=== PATIENT | male | born 1980 | race Hispanic/Latino ===

== ENCOUNTER 2017-09-04 20:27 | Emergency (ER) | payer OTHER ==
[2017-09-04 20:39] VITALS: RESP 18; TEMP 98.1
[2017-09-04 21:23] LABS: BASO % 0.6 % (0.0-2.0); EOS # 0.4 K/uL (0.0-0.7); EOS % 5.4 % (0.0-4.0); HEMOGLOBIN 13.7 g/dL (12.0-18.0); LYMPH % 25.3 % (20.0-40.0); MEAN CELL VOLUME 88.5 fl (80.0-94.0); MEAN CORPUSCULAR HEMOGLOBIN 29.9 pg (27.0-31.0); MEAN CORPUSCULAR HGB CONC 33.8 g/dL (33.0-37.0); MEAN PLATELET VOLUME 7.9 fl (7.2-11.7); MONO # 0.8 K/uL (0.0-0.8); NEUT # 4.6 K/uL (1.8-7.0); NEUT % 58.7 % (50.0-75.0); NRBC % 0.1 % (0.0-0.0); RBC 4.56 Mil/uL (4.40-5.90); RED CELL DISTRIBUTION WIDTH 12.8 % (11.5-14.5); WHITE BLOOD COUNT 7.9 K/uL (4.8-10.8)
--- NOTE | 2017-09-04 21:25 | ED PDOC ---
HPI: Chest Pain Time Seen by Provider: 09/04/17 20:44 Chief Complaint (Nursing): Chest Pain Chief Complaint (Provider): Chest Pain History Per: Patient History/Exam Limitations: no limitations Onset/Duration Of Symptoms: Hrs (earlier today) Current Symptoms Are (Timing): Better Additional Complaint(s): 36 year old male presents to the ED via EMS with complaints of chest pain. He states that around 11:00 this morning, he had a sharp, stabbing left sided chest pain that spontaneously resolved after about a minute. Patient reports that one hour prior to arrival, he had another episode of similar chest pain, but this one was more intense and lasted a little longer before spontaneously resolving. He admits over the past couple days he has been increasingly stressed due to buying / selling a house while still working. Additionally, he notes he has had a headache that radiates from his temples down to his neck for the past day. Otherwise, denies shortness of breath, nausea, vomiting, dizziness , cough, and upper respiratory infection. PMD: none provided Past Medical History Reviewed: Historical Data, Nursing Documentation, Vital Signs Vital Signs: Last Vital Signs Temp 98.1 F 09/04/17 20:35 Pulse 80 09/04/17 20:35 Resp 18 09/04/17 20:35 BP 111/70 09/04/17 20:35 Pulse Ox 96 09/04/17 21:32 - Medical History PMH: Crohn's Disease - Surgical History Other surgeries: knee surg; adenoidectomy - Family History Family History: States: CAD - Social History Current smoker - smoking cessation education provided: No Alcohol: None Drugs: Denies - Allergies Allergies/Adverse Reactions: Allergies Allergy/AdvReac Type Severity Reaction Status Date / Time No Known Allergies Allergy Verified 09/04/17 20:35 Review of Systems ROS Statement: Except As Marked, All Systems Reviewed And Found Negative Cardiovascular: Positive for: Chest Pain (sharp, stabbing feeling x2 episodes) Respiratory: Negative for: Cough (or upper respiratory infection), Shortness of Breath Gastrointestinal: Negative for: Nausea, Vomiting Neurological: Positive for: Headache (radiating from temples to neck). Negative for: Dizziness Physical Exam - Reviewed Nursing Documentation Reviewed: Yes Vital Signs Reviewed: Yes - Physical Exam Appears: Positive for: Well, Non-toxic, No Acute Distress Head Exam: Positive for: ATRAUMATIC, NORMOCEPHALIC Skin: Positive for: Warm, Dry Eye Exam: Positive for: EOMI, PERRL ENT: Negative for: Pharyngeal Erythema, Tonsillar Exudate Neck: Positive for: Painless ROM, Supple Cardiovascular/Chest: Positive for: Regular Rate, Rhythm, Chest Non Tender. Negative for: Edema, Murmur Respiratory: Positive for: Normal Breath Sounds (cleared auscultation bilaterally). Negative for: Accessory Muscle Use, Crackles, Rales, Rhonchi, Wheezing, Respiratory Distress Gastrointestinal/Abdominal: Positive for: Soft. Negative for: Tenderness Back: Positive for: Normal Inspection. Negative for: Decreased ROM Extremity: Positive for: Normal ROM. Negative for: Deformity Lymphatic: Negative for: Adenopathy Neurologic/Psych: Positive for: Alert. Negative for: Motor/Sensory Deficits - Laboratory Results Result Diagrams: 09/04/17 21:14 09/04/17 21:14 - ECG O2 Sat by Pulse Oximetry: 96 (RA) Pulse Ox Interpretation: Normal Medical Decision Making Medical Decision Making: Initial Impression: chest pain Ddx include but are not limited to: stress, costochondritis, tietze syndrome, reflux, muscle spasm Time: 20:58 Initial Plan: --EKG --CMP --Magnesium --Phosphorus --TSH --Trop I --CBC with differential --D Dimer --CXR Labs unremarkable CXR no acute pathology Repeat EKG no change Scribe Attestation: Documented by Ora Arreaga, acting as a scribe for Osiris Marie MD. Provider Scribe Attestation: All medical entries made by the Scribe were at my direction and personally dictated by me. I have reviewed the chart and agree that the record accurately reflects my personal performance of the history, physical exam, medical decision making, and the department course for this patient. I have also personally directed, reviewed, and agree with the discharge instructions and disposition. Disposition - Clinical Impression Clinical Impression: Chest pain, Tietze's syndrome Counseled Patient/Family Regarding: Studies Performed, Diagnosis, Need For Followup - Disposition Disposition: Routine/Home Disposition Time: 22:42 Condition: STABLE Additional Instructions: YOU MAY HAVE TIETZE'S SYNDROME. YOU CAN TAKE IBUPROFEN FOR PAIN IF IT PERSISTS. PLEASE FOLLOW UP WITH YOUR DOCTOR IN 2-3 DAYS FOR REEVALUATION Instructions: Chest Pain Forms: [facility] ED School/Work Excuse
[2017-09-04 21:29] LABS: ALB/GLOB RATIO 1.1 (1.0-2.1); ALT/SGPT 30 U/L (21-72); AST/SGOT 26 U/L (17-59); BLOOD UREA NITROGEN 20 mg/dl (9-20); CALCIUM 8.9 mg/dL (8.4-10.2); GFR AFRICAN-AMERICAN > 60; GFR NON-AFRICAN AMERICAN > 60
[2017-09-04 22:55] VITALS: BP 116/55; PULSE 66
[2017-09-04 22:59] VITALS: O2SAT 96
--- NOTE | 2017-09-05 07:56 | CARD ---
APPROVED REPORT EKG Measurement Heart [id number] <Conclusion> Sinus bradycardia Otherwise normal ECG
--- NOTE | 2017-09-05 11:48 | RAD ---
HISTORY: chest pain COMPARISON: No prior. TECHNIQUE: Chest PA and lateral FINDINGS: LUNGS: No active pulmonary disease. PLEURA: No significant pleural effusion identified. No pneumothorax apparent. CARDIOVASCULAR: Normal. OSSEOUS STRUCTURES: No significant abnormalities. VISUALIZED UPPER ABDOMEN: Normal. OTHER FINDINGS: None. IMPRESSION: No acute cardiopulmonary disease appreciated.
== END 2017-09-04 22:54 | disposition home or self-care (01) ==
LOC: H.ER 20:27
DX: M94.0 Chondrocostal junction syndrome [Tietze] (principal); R07.9 Chest pain, unspecified; K50.90 Crohn's disease, unspecified, without complications; Z82.49 Family history of ischemic heart disease and other diseases of the circulatory system